=== PATIENT | male | born 1985 | race African-American/Black ===

== ENCOUNTER 2017-08-05 17:07 | Inpatient (IN) | payer OTHER ==
[~2017-08-05] VITALS: Ht 165.1 cm; Wt 99.8 kg
--- NOTE | 2017-08-05 17:47 | NUR ---
CALLED NURSING SUP. FOR MS BED
--- NOTE | 2017-08-05 17:58 | NUR ---
[facility] due [facility] inhalation
[2017-08-05] MEDS ORDERED: MORPHINE SULFATE INJ 4 MG/ML DISP.SYRIN IV STA (18:49)
[2017-08-05] MEDS ORDERED: ONDANSETRON HCL/PF 4 MG/2 ML VIAL IVP ONE (19:00)
[2017-08-05] MEDS ORDERED: IV NS 0.9% 1,000 ML BAG IV ONE (19:00)
[2017-08-05] MEDS ORDERED: HYDROMORPHONE INJ 2 MG/ML DISP.SYRIN IV ONE (19:00)
[2017-08-05] MEDS ORDERED: ONDANSETRON HCL/PF 4 MG/2 ML VIAL ONE (19:05)
[2017-08-05] MEDS ORDERED: MORPHINE SULFATE INJ 4 MG/ML DISP.SYRIN ONE (19:06)
[2017-08-05 19:11] LABS: BASOPHILS # (AUTO) 0.6 /CMM (0.0-0.2); BASOPHILS % (AUTO) 2.9 % (0.0-2.0); EOSINOPHILS % (AUTO) 0.2 % (0.0-6.0); HEMATOCRIT 39 % (39-51); HEMOGLOBIN 16.4 g/dL (13.5-17.5); LYMPHOCYTES # (AUTO) 3.6 /CMM (0.8-4.8); LYMPHOCYTES % (AUTO) 16.7 % (20.0-44.0); MEAN CORPUSCULAR HEMOGLOBIN 44 PG (26.0-33.0); MEAN CORPUSCULAR HGB CONC 43 g/dl (31.0-36.0); MEAN CORPUSCULAR VOLUME 103 fL (80-96); MONOCYTES # (AUTO) 1.5 /CMM (0.1-1.30); MONOCYTES % (AUTO) 6.9 % (2.0-12.0); NEUTROPHILS # (AUTO) 15.6 /CMM (1.8-8.9); NEUTROPHILS % (AUTO) 73.3 % (43.0-81.0); PLATELET COUNT (AUTO) 291 /CMM (150-450); RDW COEFFICIENT OF VARIATION 17.3 (11.5-15.0); RED BLOOD CELL COUNT(AUTO) 3.73 MIL/uL (4.5-6.0); WHITE BLOOD COUNT (AUTO) 21.3 K/uL (4.3-11.0)
[2017-08-05 19:23] LABS: INR 1.91 (0.87-1.13); PROTHROMBIN TIME 19.9 SECS (9.5-12.7)
[2017-08-05 19:39] LABS: ALBUMIN 4.4 g/dL (3.4-5.0); BILIRUBIN,DIRECT 0.2 mg/dL (0.0-0.2); BILIRUBIN,TOTAL 0.7 mg/dL (0.2-1.0); CALCIUM, SERUM 9.7 mg/dL (8.5-10.1); CREATININE 1.1 mg/dL (0.6-1.3); POTASSIUM 3.3 mmol/L (3.5-5.1); TOTAL PROTEIN, SERUM 11.2 g/dL (6.4-8.2)
[2017-08-05 20:08] LABS: APPEARANCE,URINE Turbid (CLEAR); BILIRUBIN,URINE MODERATE (NEGATIVE); BLOOD, URINE Large Ery/uL (NEGATIVE); COLOR,URINE Yellow (YELLOW); KETONES,URINE 15 (NEGATIVE); LEUKOCYTE ESTERASE ,URINE Small (NEGATIVE); NITRITE, URINE Negative (NEGATIVE); PH,URINE 8.5 (5.0-8.0); PROTEIN,URINE >=300 mg/dl (NEGATIVE); UGLUCOSE Negative (NEGATIVE); UROBILINOGEN,URINE 0.2 EU/dL (0.2)
--- NOTE | 2017-08-05 20:23 | NUR ---
report given to Evelio RUFFIN, accepted by Dr. Camargo. Continue plan of care
--- NOTE | 2017-08-05 20:28 | NUR ---
31 Y/ O MALE PLACED IN BED 15. DX - R/O SEPSIS SECONDARY TO UTI. PT TO BE ADMITTED TO M/S. NO BED AVAILABLE YET.
[2017-08-05] MEDS ORDERED: ZOLPIDEM TARTRATE 5 MG TABLET PO PRN (20:30)
[2017-08-05] MEDS ORDERED: ACETAMINOPHEN 325 MG TABLET PO PRN (20:30)
[2017-08-05] MEDS ORDERED: MAGNESIUM HYDROXIDE 30 ML UDC PO PRN (20:30)
[2017-08-05] MEDS ORDERED: Z GUARD REMEDY 2 OZ OINT TP PRN (20:30)
[2017-08-05] MEDS ORDERED: VANCOMYCIN 1 GM in IV D5W 250 ML IV SCH (20:30)
[2017-08-05] MEDS ORDERED: MAG HYDROX/AL HYDROX/SIMETH 30 ML UDC PO PRN (20:30)
[2017-08-05] MEDS ORDERED: ONDANSETRON HCL/PF 4 MG/2 ML VIAL IVP PRN (20:30)
[2017-08-05] MEDS ORDERED: LEVOFLOXACIN 500 MG /D5W 100ML 500 MG in PREMIX 1 EA IV ONE (20:30)
[2017-08-05] MEDS ORDERED: FEE PK DOSING 1 MIN EA MC ONE (20:32)
[2017-08-05] MEDS: ENOXAPARIN SODIUM 40 MG/0.4 ML DISP.SYRIN SQ SCH (21:00)
[2017-08-05] MEDS ORDERED: PIPERACILLIN /TAZOBACTAM 4.5 G in IV D5W 50 ML IV SCH (21:00)
[2017-08-05 21:01] LABS: BACTERIA,URINE Few /HPF (None Seen); SQUAMOUS EPITHELIAL CELL,UR Rare /HPF (None Seen); TRIPLE PHOSPHATE CRYSTAL,UR Few /HPF (None Seen); URINE AMORPHOUS PHOSPHATES Many /HPF (None Seen)
[2017-08-05 21:41] VITALS: BP 164/89
[2017-08-05] MEDS ORDERED: PIPERACILLIN /TAZOBACTAM 3.375 G VIAL IV ONE (21:51)
[2017-08-05] MEDS: IV NS 0.9% 1,000 ML IV PRN (21:53)
[2017-08-05] MEDS ORDERED: VANCOMYCIN 1 GM VIAL ONE (22:00)
[2017-08-05] MEDS: VANCOMYCIN 1 GM in IV D5W 250 ML IV SCH (22:00)
--- NOTE | 2017-08-05 22:00 | NUR ---
IV ANTIBIOTICS STARTED.
[2017-08-05] MEDS ORDERED: ENOXAPARIN SODIUM 40 MG/0.4 ML DISP.SYRIN SQ ONE (22:33)
[2017-08-05] MEDS ORDERED: METRONIDAZOLE 500 MG TABLET ONE (22:34)
[2017-08-05] MEDS: METRONIDAZOLE 500 MG TABLET PO SCH (22:36)
--- NOTE | 2017-08-06 00:14 | NUR ---
IV ANTIBIOTICS CONTINUE TO RUN. EXAMINED CLOSER BILATERAL ULCERATIONS ON LOWER EXTREMITIES. IT APPEARS THAT THEY ARE IN THE PROCESS OF HEALING BUT THERE IS SOME DRAINAGE FROM BOTH WOUNDS. AREA IS REDDEND AND WARM TO THE TOUCH.
[2017-08-06] MEDS: PIPERACILLIN /TAZOBACTAM 3.375 G in IV D5W 50 ML IV SCH ×4 (00:18→17:39)
[2017-08-06] MEDS ORDERED: HYDROCODONE/APAP 5/325MG 1 EACH TABLET ONE ×2 (00:58→11:55)
[2017-08-06] MEDS: HYDROCODONE/APAP 5/325MG 1 EACH TABLET PO PRN ×2 (01:00→11:58)
--- NOTE | 2017-08-06 01:05 | NUR ---
PT C/O ABDOMINAL PAIN. MEDICATED WITH NORCO. CONTINUE TO MONITOR. PT UPSET THAT HE WAS NOT RECEIVING MORPHINE.
[2017-08-06 01:58] VITALS: BP 121/79
--- NOTE | 2017-08-06 02:00 | NUR ---
PAIN LEVEL HAS GONE DOWN FOLLOWING THE ADMINISTRATION OF NORCO.
--- NOTE | 2017-08-06 02:00 | NUR ---
EMPTIED COLOSTOMY BAG. APPROX. 200CC OF FECAL MATTER.
--- NOTE | 2017-08-06 03:30 | NUR ---
PT APPEARS COMFORTABLE. CONTINUE TO MONITOR
[2017-08-06] MEDS ORDERED: VANCOMYCIN 1 GM VIAL ONE (04:22)
[2017-08-06] MEDS ORDERED: PIPERACILLIN /TAZOBACTAM 3.375 G VIAL IV ONE (04:31)
[2017-08-06] MEDS ORDERED: METRONIDAZOLE 500 MG TABLET ONE (04:31)
[2017-08-06] MEDS: VANCOMYCIN 1 GM in IV D5W 250 ML IV SCH ×3 (05:18→20:43)
[2017-08-06] MEDS: METRONIDAZOLE 500 MG TABLET PO SCH ×3 (05:18→20:43)
[2017-08-06 05:28] VITALS: BP 105/71
--- NOTE | 2017-08-06 05:29 | NUR ---
BLOOD DRAWN AND SENT. ANTIBIOTICS STARTED AGAIN
[2017-08-06 05:50] LABS: BASOPHILS # (AUTO) 0.1 /CMM (0.0-0.2); BASOPHILS % (AUTO) 0.4 % (0.0-2.0); EOSINOPHILS # (AUTO) 0.2 /CMM (0.0-0.7); EOSINOPHILS % (AUTO) 1.4 % (0.0-6.0); HEMATOCRIT 43 % (39-51); HEMOGLOBIN 14.2 g/dL (13.5-17.5); LYMPHOCYTES # (AUTO) 2.9 /CMM (0.8-4.8); LYMPHOCYTES % (AUTO) 19.9 % (20.0-44.0); MEAN CORPUSCULAR HEMOGLOBIN 28 PG (26.0-33.0); MEAN CORPUSCULAR HGB CONC 33 g/dl (31.0-36.0); MEAN CORPUSCULAR VOLUME 84 fL (80-96); MONOCYTES # (AUTO) 0.9 /CMM (0.1-1.30); MONOCYTES % (AUTO) 6.3 % (2.0-12.0); NEUTROPHILS # (AUTO) 10.4 /CMM (1.8-8.9); PLATELET COUNT (AUTO) 366 /CMM (150-450); RDW COEFFICIENT OF VARIATION 15.4 (11.5-15.0); RED BLOOD CELL COUNT(AUTO) 5.08 MIL/uL (4.5-6.0); WHITE BLOOD COUNT (AUTO) 14.4 K/uL (4.3-11.0)
--- NOTE | 2017-08-06 06:05 | NUR ---
500 CC URINE OUTPUT FROM NÚÑEZ.
[2017-08-06 06:20] LABS: CALCIUM, SERUM 8.7 mg/dL (8.5-10.1); CREATININE 0.7 mg/dL (0.6-1.3); PHOSPHORUS 3.3 mg/dL (2.5-4.9)
[2017-08-06 06:26] LABS: THYROID STIMULATING HORMONE 3.248 uIU/mL (0.358-3.74)
[2017-08-06 06:30] LABS: POTASSIUM 2.4 mmol/L (3.5-5.1)
--- NOTE | 2017-08-06 06:54 | NUR ---
CRITICAL VALUE FOR THE PT - POTASSIUM 2.4. CALLED DR. OWENS EXCHANGE. DOCTOR DOCUMENTATION ENGINEER IS DR. BALDERAS. LEFT VALUE WITH PUMP HOUSE ENGINEER AND PHONE NUMBER FOR HIM TO CALL US BACK.
[2017-08-06] MEDS ORDERED: ACET-868 PO (07:52)
[2017-08-06] MEDS ORDERED: CYCL5TAB PO (07:52)
[2017-08-06] MEDS ORDERED: MULT1TAB11 PO (07:52)
[2017-08-06] MEDS ORDERED: ASCO500T9 PO (07:52)
[2017-08-06] MEDS ORDERED: CHOL100044 PO (07:52)
[2017-08-06] MEDS ORDERED: FAMO20TA8 PO (07:52)
[2017-08-06] MEDS ORDERED: MAGN400O6 PO (07:52)
[2017-08-06] MEDS ORDERED: AMIN30LI4 PO (07:52)
[2017-08-06] MEDS ORDERED: ZINC220C8 PO (07:52)
[2017-08-06] MEDS ORDERED: LACT10SO PO (07:52)
[2017-08-06] MEDS ORDERED: MIRT30TA7 PO (07:52)
[2017-08-06] MEDS ORDERED: WARF4TAB6 PO (07:52)
[2017-08-06] MEDS ORDERED: NA P133E RC (07:52)
[2017-08-06] MEDS ORDERED: MELA5TAB PO (07:52)
[2017-08-06] MEDS ORDERED: ACET-2605 PO (07:52)
[2017-08-06] MEDS ORDERED: OMEG500C PO (07:52)
[2017-08-06] MEDS ORDERED: MORP15TA PO ×3 (07:52)
[2017-08-06] MEDS ORDERED: BISA10SU8 RC (07:52)
[2017-08-06 08:00] VITALS: BP 112/71
--- NOTE | 2017-08-06 10:07 | NUR ---
PATIENT ON BED. VSS. WILL CONT TO MONITOR
[2017-08-06] MEDS ORDERED: POTASSIUM CHLORIDE 20 MEQ TAB.PRT.SR PO ONE ×2 (10:30→11:04)
[2017-08-06] MEDS: POTASSIUM CL. PREMIX PERIPHER. 50 ML IV SCH ×9 (11:22→22:33)
--- NOTE | 2017-08-06 12:38 | NUR ---
CARE TRANSFFERED TO LALY HALL
--- NOTE | 2017-08-06 13:00 | NUR ---
SEO COORDINATOR OPENING NOTES. PT RECEIVED A&0X3 FROM ER VIA GURNEY. PT TOLERATING ROOM AIR WITH NO SOB. PT REPORTING MODERATE STOMACH PAIN, PT WITH WITH R SIDE COLOSTOMY BAG, DRAINING APPROPRIATELY WITH SOME LEAKAGE, PLAN TO REPLACE. PT WITH NÚÑEZ INTACT AND OPERATIONAL DRAINING CLEAR VENITA YELLOW URINE. PT WITH IVC AT R AC INTACT AND OPERATIONAL. PT VITALS WNL. PT BRIEFED ON TODAY'S POC, PT WITHOUT CONCERN OR COMPLAINT AT THIS TIME.
[2017-08-06] MEDS: IV NS 0.9% 1,000 ML IV PRN (14:01)
[2017-08-06 16:00] VITALS: BP 115/78
--- NOTE | 2017-08-06 17:36 | NUR ---
LALY NOTES. K REPLACEMENT SLOWED TO 30ML/PH DUE TO PAIN AT SITE. WILL TEST TOLERANCE AGAIN IN 60 MIN. Addendum: 08/06/17 at 1738 by RAFAEL FANG RN TIME 1600
--- NOTE | 2017-08-06 17:38 | NUR ---
RN NOTES. KL REPLACEMENT INCREASED TO 40ML/HR. WELL TOLERATED.
--- NOTE | 2017-08-06 19:30 | NUR ---
BAGGING SALVAGER - INITIAL N OTES PATIENT IN BED. CURRENTLY ASLEEP. TELE READING OF SINUS TACH 102. NO S/S OF SOB OR ANY DISCOMFORT NOTED. BED IN LOW POSITION AND LOCKED. SIDERAILS X2 UP. NO SIGNIFICANT CHANGES NOTED AT THIS TIME. WILL CONTINUE TO MONITOR PATIENT.
--- NOTE | 2017-08-06 19:30 | NUR ---
RN CLOSING NOTES. PT A&0X3 RESTING IN BED. PT TOLERATING ROOM AIR WITH NO SOB. PT REPORTING MINOR PAIN, REFUSING PAIN MED REPORTS NORCO IS INEFFECTIVE- NIGHT NURSE TO FOLLOW UP. PT WITH COLOSTOMY BAG INTACT AND OPERATIONAL, NÚÑEZ INTACT AND DRAINING APPROPRIATELY. PT WITH IVC AT R AC G#20 INTACT AND OPERATIONAL. ALL DAY NURSE DUTIES ATTENDED TO, PT WITHOUT CONCERN OR COMPLAINT AT THIS TIME. WILL ENDORSE TO NIGHT NURSE.
[2017-08-06 20:00] VITALS: BP 124/86
[2017-08-06] MEDS: ENOXAPARIN SODIUM 40 MG/0.4 ML DISP.SYRIN SQ SCH (20:44)
[2017-08-07] VITALS: BP 127/83
[2017-08-07] MEDS ORDERED: VANCOMYCIN HCL 125 MG/2.5 ML ORAL.SUSP ONE (00:11)
[2017-08-07] MEDS: VANCOMYCIN HCL 125 MG CAPSULE PO SCH ×2 (00:24→05:18)
[2017-08-07] MEDS: PIPERACILLIN /TAZOBACTAM 3.375 G in IV D5W 50 ML IV SCH ×4 (00:25→17:44)
[2017-08-07 04:00] VITALS: BP 135/78
[2017-08-07] MEDS: IV NS 0.9% 1,000 ML IV PRN ×2 (05:17→20:47)
--- NOTE | 2017-08-07 05:48 | NUR ---
Patient is verbalizing that [place] pain medication is not helping him with pain. Patient is complaining of abdominal pain 05/10. Paged MD for further pain medication order. Awaiting call back.
--- NOTE | 2017-08-07 07:30 | NUR ---
RN NOTES RECEIVED PATIENT IN BED ASLEEP WITH BREATHING NORMAL, EVEN AND UNLABORED. NO SOB NOTED. NO ACUTE DISTRESS NOTED. ON ROOM AIR, SATURATING WELL. TELE MONITOR REVEALS SR, HR=97. IV IS PATENT AND INTACT, NO INFILTRATION NOTED BOWEL SOUND PRESENT. PULSES PRESENT. SAFETY MEASURE OBSERVED. ALL NEEDS ATTENDED. CALL LIGHT WITH IN REACH. WILL CONT TO MONITOR.
[2017-08-07 07:42] LABS: BASOPHILS % (AUTO) 0.3 % (0.0-2.0); EOSINOPHILS # (AUTO) 0.1 /CMM (0.0-0.7); EOSINOPHILS % (AUTO) 0.8 % (0.0-6.0); HEMATOCRIT 43 % (39-51); HEMOGLOBIN 14.3 g/dL (13.5-17.5); LYMPHOCYTES # (AUTO) 1.8 /CMM (0.8-4.8); LYMPHOCYTES % (AUTO) 17.7 % (20.0-44.0); MEAN CORPUSCULAR HEMOGLOBIN 28 PG (26.0-33.0); MEAN CORPUSCULAR HGB CONC 33 g/dl (31.0-36.0); MEAN CORPUSCULAR VOLUME 85 fL (80-96); MONOCYTES # (AUTO) 0.9 /CMM (0.1-1.30); MONOCYTES % (AUTO) 8.9 % (2.0-12.0); NEUTROPHILS # (AUTO) 7.5 /CMM (1.8-8.9); NEUTROPHILS % (AUTO) 72.3 % (43.0-81.0); PLATELET COUNT (AUTO) 365 /CMM (150-450); RDW COEFFICIENT OF VARIATION 15.1 (11.5-15.0); RED BLOOD CELL COUNT(AUTO) 5.07 MIL/uL (4.5-6.0); WHITE BLOOD COUNT (AUTO) 10.4 K/uL (4.3-11.0)
[2017-08-07 07:49] LABS: CALCIUM, SERUM 9.2 mg/dL (8.5-10.1); CREATININE 0.8 mg/dL (0.6-1.3); MAGNESIUM 2.2 mg/dL (1.8-2.4); POTASSIUM 3.2 mmol/L (3.5-5.1)
[2017-08-07 08:00] VITALS: BP 116/83
[2017-08-07] MEDS ORDERED: VANCOMYCIN 1 GM in IV D5W 250 ML IV SCH (09:00)
[2017-08-07] MEDS: VANCOMYCIN HCL 125 MG/2.5 ML ORAL.SUSP PO SCH ×4 (10:01→20:47)
--- NOTE | 2017-08-07 11:35 | NUR ---
WOUND CARE CONSULT: PT PRESENTS WITH MULTIPLE SCARS AND STAGE 4 ULCER TO RT HIP, STAGE 3 ULCER TO RT BUTTOCK, COLOSTOMY WITH LIQUID STOOL AND HEALED/HEALING AREAS TO LOWER LEGS, PRESENT ON ADMISSION. RECOMMENDATIONS MADE FOR WOUND AND SKIN PROTECTION. DISCUSSED WITH NURSING STAFF. DR NELSON IN WITH PT FOR LOWER EXTREMITIES. SURGICAL CONSULT WAS CALLED BY . FIRST STEP MATRENAN ORDERED. WILL SEE PRN. LR IN AGREEMENT WITH PLAN OF CARE. Addendum: 08/07/17 at 1137 by JOE STOKES WNDNU Amended: Links added.
[2017-08-07] MEDS: HYDROCODONE/APAP 10/325MG 1 EA TABLET PO PRN ×2 (11:53→18:02)
[2017-08-07] MEDS: POTASSIUM CHLORIDE 20 MEQ TAB.PRT.SR PO SCH ×2 (11:54→12:55)
[2017-08-07] MEDS ORDERED: HYDROGEL DRESSING 90 GM TUBE TP PRN (12:00)
[2017-08-07] MEDS: HYDROGEL DRESSING 90 GM TUBE TP SCH (12:49)
[2017-08-07 16:00] VITALS: BP 132/69
--- NOTE | 2017-08-07 18:46 | NUR ---
RN NOTES PATIENT ENDORSED TO NEXT SHIFT IN STABLE CONDITION WITH BREATHING NORMAL, EVEN AND UNLABORED. NO SOB NOTED. NO ACUTE DISTRESS NOTED. KEPT CLEAN, DRY AND COMFORTABLE. ALL NEEDS ATTENDED. CALL LIGHT WITH IN REACH. SAFETY MEASURE OBSERVED. WILL CONT TO MONITOR.
--- NOTE | 2017-08-07 19:15 | NUR ---
MS/RN NOTES RECEIVED PT. LYING IN BED RESTING. PT. IS EASILY AROUSABLE TO NAME. PT. IS AWAKE, ALERT AND ORIENTED X3. BREATHING EVEN AND UNLABORED ON ROOM AIR. NO SOB, RESPIRATORY DISTRESS OR COMPLAINTS OF PAIN NOTED AT THIS TIME. PT. IV SITE PATENT, CLEAN, DRY AND INTACT, ADMINISTERING TO PT. NS @ 75 ML/HR. BED LOCKED AND IN LOWEST POSITION, SIDE RAILS UP X2, CALL LIGHT WITHIN REACH, WILL CONTINUE TO MONITOR.
[2017-08-07 20:00] VITALS: BP 135/85
[2017-08-07] MEDS: ENOXAPARIN SODIUM 40 MG/0.4 ML DISP.SYRIN SQ SCH (20:47)
[2017-08-08] MEDS: PIPERACILLIN /TAZOBACTAM 3.375 G in IV D5W 50 ML IV SCH ×3 (00:23→12:12)
[2017-08-08] MEDS: HYDROCODONE/APAP 10/325MG 1 EA TABLET PO PRN (00:29)
--- NOTE | 2017-08-08 06:50 | NUR ---
MS/RN NOTES PT. IS LYING IN BED RESTING. BREATHING EVEN AND UNLABORED ON ROOM AIR. NO SOB, RESPIRATORY DISTRESS OR COMPLAINTS OF PAIN NOTED AT THIS TIME. PT. LEFT HAND 22 GAUGE PERIPHERAL IV PATENT, CLEAN, DRY AND INTACT, ADMINISTERING TO PT. NS @ 75 ML/HR. PT. WITH COLOSTOMY BAG PRESENT AND INTACT DRAINING BROWN LIQUID FECES. PT. WITH SUPRAPUBIC CATHETER PRESENT, PATENT AND INTACT DRAINING YELLOW URINE WITH SEDIMENT. ALL PT. NEEDS MET. ALL DUE MEDICATIONS GIVEN. BED LOCKED AND IN LOWEST POSITION, SIDE RAILS UP X2, CALL LIGHT WITHIN REACH, WILL ENDORSE TO DAYSHIFT NURSE FOR CONTINUITY OF CARE.
[2017-08-08 07:10] LABS: CALCIUM, SERUM 8.2 mg/dL (8.5-10.1); POTASSIUM 3.2 mmol/L (3.5-5.1)
--- NOTE | 2017-08-08 07:35 | NUR ---
RN OPENING NOTES PT. IS SLEEPING IN BED. BREATHING UNLABORED, AND EVENLY ON ROOM AIR. NO S/S OF ACUTE DISTRESS. IV FLUIDS RUNNING AT 75 ML/HR. BED IS IN LOWEST, AND LOCKED POSITION. 2 SIDE RAILS UP, AND CALL LIGHT IS WITHIN REACH. ALL NEEDS MET. WILL CONTINUE TO ASSESS AND MONITOR.
[2017-08-08 08:00] VITALS: BP 120/79
[2017-08-08] MEDS: HYDROGEL DRESSING 90 GM TUBE TP SCH (10:23)
[2017-08-08] MEDS: VANCOMYCIN HCL 125 MG/2.5 ML ORAL.SUSP PO SCH ×2 (10:24→12:57)
--- NOTE | 2017-08-08 10:30 | NUR ---
RN NOTES WOUND CARE WAS PERFORMED AND CLEAN DRESSING APPLIED PER MD ORDERS.
[2017-08-08] MEDS ORDERED: ONDA4TAB5 PO (10:49)
[2017-08-08] MEDS ORDERED: POTASSIUM CHLORIDE 20 MEQ TAB.PRT.SR PO SCH (11:00)
--- NOTE | 2017-08-08 11:30 | NUR ---
RN NOTES PT. REFUSES TO TAKE POTASSIUM ORDERED. PT. WAS EXPLAINED THE REASON FOR TAKING POTASSIUM AND IT'S BENEFITS. PT. REFUSED TO TAKE MEDICATION, MD WAS NOTIFIED, AND WAS GIVEN AN OKAY TO PROCEED WITH DISCHARGE.
--- NOTE | 2017-08-08 13:15 | NUR ---
GLOBAL PRESIDENT NOTES PT. IS IN MEDICALLY STABLE CONDITION. EDUCATION, AND DISCHARGE INSTRUCTIONS PROVIDED TO PT., PT. VERBALIZED UNDERSTANDING AND SIGNED DISCHARGE PAPERS. BELONGINGS LIST WAS CHECKED, AND SIGNED. PICTURES TAKEN AND PLACED IN CHART. IV AND ID BAND REMOVED WITHOUT COMPLICATIONS. PT. LEFT WITH SUPRAPUBIC INDWELLING CATHETER, AND COLOSTOMY BAG CLEAN AND INTACT. PT. WAS OFFERED TO CALL HIS BROTHER TO INFORM HIM PT. WAS BEING TAKEN BACK TO [facility], PT. REFUSED TO CALL HIS BROTHER.
--- NOTE | 2017-08-08 13:20 | NUR ---
MARINE ELECTRONICS REPAIRER NOTES PT. IS BEING TAKEN TO [facility] BY AMBULANCE. PT. LEFT IN MEDICALLY STABLE CONDITION. REPORT WAS GIVEN TO LALY RAMIREZ FROM [facility] [[email or web address]
== END 2017-08-08 13:23 | DRG 871 ==
LOC: ER 17:08 → TRANSITION 18:42 → TELE 08-06 12:43 → MED 08-07 08:32
DX: A41.9 Sepsis, unspecified organism (principal); L89.214 Pressure ulcer of right hip, stage 4; D68.9 Coagulation defect, unspecified; L89.304 Pressure ulcer of unspecified buttock, stage 4; G82.20 Paraplegia, unspecified; I48.0 Paroxysmal atrial fibrillation; N31.9 Neuromuscular dysfunction of bladder, unspecified; L89.894 Pressure ulcer of other site, stage 4; M86.9 Osteomyelitis, unspecified; J70.5 Respiratory conditions due to smoke inhalation; X08.8XXA Exposure to other specified smoke, fire and flames, initial encounter; T59.811A Toxic effect of smoke, accidental (unintentional), initial encounter; Y92.129 Unspecified place in nursing home as the place of occurrence of the external cause; I10 Essential (primary) hypertension; W34.00XS Accidental discharge from unspecified firearms or gun, sequela; Z93.3 Colostomy status; Z86.718 Personal history of other venous thrombosis and embolism; E87.6 Hypokalemia; T45.515A Adverse effect of anticoagulants, initial encounter; F32.9 Major depressive disorder, single episode, unspecified; L85.3 Xerosis cutis; K76.0 Fatty (change of) liver, not elsewhere classified; A08.4 Viral intestinal infection, unspecified
CPT/HCPCS: 36415; 71010-TC; 80048-TC; 80061-TC; 80076-TC; 80202-TC; 81000-TC; 83690-TC; 83735-TC; 84100-TC; 84443-TC; 85025-TC; 85730-TC; 87040-TC; 87081-TC; 87086-TC; A4216; A4606; A6248; A6402; A6403; A6407; J1170; J1650; J1956; J2270; J2405; J2543; J3370; J3480; J7030; J7060; Z7610

== ENCOUNTER 2018-06-03 00:23 | Inpatient (IN) | payer OTHER ==
[~2018-06-03] VITALS: Ht 165.1 cm; Wt 95.7 kg
[~2018-06-03 00:23] MED LIST: ACET-2605 PO; ACET-868 PO; AMIN30LI4 PO; ASCO500T9 PO; BISA10SU8 RC; CHOL100044 PO; CYCL5TAB PO; FAMO20TA8 PO; LACT10SO PO; MAGN400O6 PO; MELA5TAB PO; MIRT30TA7 PO; MORP15TA PO; MULT1TAB11 PO; NA P133E RC; OMEG500C PO; ONDA4TAB5 PO; WARF4TAB72 PO; ZINC220C8 PO
--- NOTE | 2018-06-03 00:23 | NUR ---
CARLEY FROM [facility] C/C SENT BY PMD FOR L FEMUR FRACTURE. PER EMS,PT WAS STRETCHING AND HEARD A "POP". PT IS TACHYCARDIC BUT OTHERWISE VSS NO ACUTE DISTRESS NOTED AT THIS TIME. SKIN WARM AND INTACT. PATIENT IS ALERT AND ORIENTED X4 ABLE TO MAKE NEEDS KNOWN. WILL CONTINUE TO MONITOR FOR ANY CHANGES DURING THE SHIFT.
--- NOTE | 2018-06-03 00:24 | NUR ---
ER MD CORTEZ AT BEDSIDE FOR EVAL
[2018-06-03 02:41] LABS: BASOPHILS % (AUTO) 0.2 % (0.0-2.0); EOSINOPHILS % (AUTO) 0.9 % (0.0-6.0); HEMATOCRIT 39 % (39-51); HEMOGLOBIN 12.5 g/dL (13.5-17.5); LYMPHOCYTES # (AUTO) 3.6 /CMM (0.8-4.8); LYMPHOCYTES % (AUTO) 22.4 % (20.0-44.0); MEAN CORPUSCULAR HGB CONC 33 g/dl (31.0-36.0); MEAN CORPUSCULAR VOLUME 85 fL (80-96); MONOCYTES # (AUTO) 1.7 /CMM (0.1-1.30); MONOCYTES % (AUTO) 10.6 % (2.0-12.0); NEUTROPHILS # (AUTO) 10.6 /CMM (1.8-8.9); NEUTROPHILS % (AUTO) 65.9 % (43.0-81.0); PLATELET COUNT (AUTO) 456 /CMM (150-450); RDW COEFFICIENT OF VARIATION 16.4 (11.5-15.0); RED BLOOD CELL COUNT(AUTO) 4.53 MIL/uL (4.5-6.0)
[2018-06-03 02:56] LABS: CALCIUM, SERUM 8.3 mg/dL (8.5-10.1); CREATININE 0.5 mg/dL (0.6-1.3)
[2018-06-03 03:06] LABS: INR 3.05 (0.87-1.13)
[2018-06-03 03:15] LABS: LYMPHOCYTES % (MANUAL) 25 % (16-48); MONOCYTES % (MANUAL) 8 % (0-11.0); NEUTROPHILS % (MANUAL) 67 (42-76)
[2018-06-03] MEDS ORDERED: POTASSIUM CL. PREMIX PERIPHER. 50 ML ONE (03:35)
[2018-06-03] MEDS: POTASSIUM CL. PREMIX PERIPHER. 50 ML IV SCH ×6 (03:41→09:49)
--- NOTE | 2018-06-03 03:53 | NUR ---
REPORT GIVEN TO ANAYA
[2018-06-03] MEDS ORDERED: ACETAMINOPHEN 325 MG TABLET PO PRN (04:00)
[2018-06-03] MEDS ORDERED: HYDROCODONE/APAP 5/325MG 1 EACH TABLET PO PRN (04:00)
[2018-06-03] MEDS ORDERED: ZOLPIDEM TARTRATE 5 MG TABLET PO PRN (04:00)
[2018-06-03] MEDS ORDERED: MORPHINE SULFATE INJ 4 MG/ML DISP.SYRIN IV PRN (04:00)
[2018-06-03] MEDS ORDERED: Z GUARD REMEDY 2 OZ OINT TP PRN (04:00)
[2018-06-03] MEDS ORDERED: ONDANSETRON HCL/PF 4 MG/2 ML VIAL IVP PRN (04:00)
[2018-06-03] MEDS ORDERED: MAGNESIUM HYDROXIDE 30 ML UDC PO PRN (04:00)
[2018-06-03] MEDS ORDERED: NA PHOS,M-B/NA PHOS,DI-BA 1 EA ENEMA RC PRN (04:00)
[2018-06-03] MEDS ORDERED: BISACODYL SUPP (10 MG) 10 MG/SUPP.RECT SUPP.RECT RC PRN (04:00)
[2018-06-03] MEDS ORDERED: MAG HYDROX/AL HYDROX/SIMETH 30 ML UDC PO PRN (04:00)
[2018-06-03 04:15] VITALS: BP 129/80
[2018-06-03] MEDS: IV NS 0.9% 1,000 ML IV PRN ×2 (04:17→21:10)
--- NOTE | 2018-06-03 06:40 | NUR ---
VALVE MAKER CLOSING NOTES RECEIVE PT AT 0404 FROM [facility] [place] PT A/OX 3. NOT IN DISTRESS. TOLERATING ROOM AIR 99%, ADMIT TO TELE ST 100 RESPIRATION EVEN AND UNLABORED. KEPT CLEAN AND DRY AND COMFORTABLE, ALL NURSING CARE RENDERED. NEEDS ATTENDED AND ANTICIPATED. GOOD SKIN CARE PROVIDED. HEAD TO TOE ASSESSMENT IS DONE, REPOSITION Q2H. NO COMPLAIN OF PAIN AT THIS TIME. ON LOW BED AT ALL TIMES TO ENSURE SAFETY. SAFE HAZARD FREE ENVIRONMENT PROVIDED. CALL LIGHT WITHIN EASY TO REACH. WILL ENDORSE NEXT SHIFT CONTINUITY OF CARE.
--- NOTE | 2018-06-03 08:10 | NUR ---
MS RN RECEIVED ON BED, AWAKE,ALERT,ORIENTED X4,NOT IN ANY FORM OF DISTRESS, RESPIRATIONS EVEN AND UNLABORED,NO SOB NOTED. LUNGS ARE CLEAR, ABDOMEN SOFT, POSITIVE BOWEL SOUNDS, DENIES PAIN AT THIS TIME, WILL MONITOR PATIENT.
[2018-06-03 08:24] VITALS: BP 116/70
--- NOTE | 2018-06-03 08:30 | NUR ---
MS RN PATIENT REFUSED TO EAT BREAKFAST AND TAKE MEDS DUE TO HE IS WAITING FOR ORTHO DOCTOR TO COME. MEDS ARE HELD AT THIS TIME.
[2018-06-03 09:33] LABS: MAGNESIUM 2.1 mg/dL (1.8-2.4)
[2018-06-03 09:51] LABS: THYROID STIMULATING HORMONE 1.669 uIU/mL (0.358-3.74)
--- NOTE | 2018-06-03 16:00 | NUR ---
MS RN WAS SEEN BY ORTHO, NO ORDER FOR SX TO BE DONE, PATIENT CAN EAT NOW.
[2018-06-03 16:25] VITALS: BP 115/68
--- NOTE | 2018-06-03 17:04 | NUR ---
MS RN ON BED, NO DISTRESS NOTED.
[2018-06-03] MEDS: ASCORBIC ACID 500 MG TABLET PO SCH (17:55)
[2018-06-03] MEDS: MORPHINE SULFATE IR 15 MG TABLET PO SCH ×2 (17:55→21:00)
[2018-06-03] MEDS: ZINC SULFATE 220 MG CAPSULE PO SCH (17:55)
[2018-06-03] MEDS: WARFARIN SODIUM 2 MG TABLET PO SCH (17:59)
--- NOTE | 2018-06-03 18:55 | NUR ---
ms rn on bed, no distress noted.
--- NOTE | 2018-06-03 19:32 | NUR ---
RN OPENING NOTES PT ASLEEP IN BED COMFORTABLY, EASILY AROUSED. PT IN ROOM AIR, TOLERATING WELL, NO SIGNS OF DISTRESS, NO LABORED BREATHING. PT HAS NÚÑEZ CATHETER, PATENT AND INTACT. COLOSTOMY BAG IS INTACT AND PATENT. RIGHT HIP AND RIGHT BUTTOCK DRESSING IS INTACT AND DRY, WILL CHANGE NECESSARY. IV ACCESS ON THE RIGHT AC 18G PATENT AND INTACT. PT DENIES ANY PAIN AT THIS MOMENT. SAFETY MEASURES IN PLACED, CALL LIGHT WITHIN REACH. WILL CONTINUE TO MONITOR AND ASSESS PATIENT.
[2018-06-03 20:00] VITALS: BP_SYST 128; BP_SYST 28; BP_DIAS 69
--- NOTE | 2018-06-03 20:40 | NUR ---
RN NOTES/ HR PT HR IS 130s-140s IS ASYMPTOMATIC, NO N/V, NO CHEST PAIN, OR ANY PAIN. HEART RATE WAS CHECKED TWICE ON THE BP MACHINE AND ONCE ON PALPATION, READINGS ARE THE SAME. CALLED DR. VALLADARES BECAUSE PT HR IS RANGING FROM 130-140s. Dr. Valladares ordered to put patient back on telemetry, stat EKG, and lopressor for HR >120 PRN.
[2018-06-03] MEDS ORDERED: METOPROLOL TARTRATE 25 MG TABLET PO PRN (21:00)
--- NOTE | 2018-06-03 21:21 | NUR ---
RN NOTES/ NON-ADMIN MS IR MED MS IR TAB MED Q12H NON-ADMIN BECAUSE AM NURSE ADMIN THE MEDICATION AT 1755 ON 06/03/18. PT CURRENTLY DENIES ANY PAIN, LAYING IN BED COMFORTABLY
[2018-06-03] MEDS ORDERED: MIRTAZAPINE 15 MG TABLET PO SCH (22:00)
[2018-06-04] VITALS: BP 115/72
--- NOTE | 2018-06-04 00:31 | NUR ---
RN NOTES PT GIVEN TYLENOL DUE TO ELEVATED TEMPERATURE OF 100 DEGREES FARENHEIT
--- NOTE | 2018-06-04 02:09 | NUR ---
RN NOTES/ HR PT HR DECREASED TO 112, SINUS TACHYCARDIA. ASYMPTOMATIC, NO SIGNS OF DISTRESS, SLEEPING IN BED, EASILY AROUSED
--- NOTE | 2018-06-04 02:14 | NUR ---
RN NOTES/ TEMP PT TEMPERATURE HAS GONE DOWN TO 98.1, TYLENOL WAS EFFECTIVE
[2018-06-04 04:00] VITALS: BP 105/65
[2018-06-04 06:36] LABS: BASOPHILS # (AUTO) 0.1 /CMM (0.0-0.2); BASOPHILS % (AUTO) 0.3 % (0.0-2.0); EOSINOPHILS % (AUTO) 1.2 % (0.0-6.0); HEMATOCRIT 33 % (39-51); HEMOGLOBIN 10.6 g/dL (13.5-17.5); LYMPHOCYTES # (AUTO) 2.9 /CMM (0.8-4.8); LYMPHOCYTES % (AUTO) 18.4 % (20.0-44.0); MEAN CORPUSCULAR HGB CONC 33 g/dl (31.0-36.0); MEAN CORPUSCULAR VOLUME 85 fL (80-96); MONOCYTES # (AUTO) 1.5 /CMM (0.1-1.30); MONOCYTES % (AUTO) 9.4 % (2.0-12.0); NEUTROPHILS # (AUTO) 11.3 /CMM (1.8-8.9); NEUTROPHILS % (AUTO) 70.7 % (43.0-81.0); PLATELET COUNT (AUTO) 413 /CMM (150-450); RDW COEFFICIENT OF VARIATION 16.8 (11.5-15.0); RED BLOOD CELL COUNT(AUTO) 3.83 MIL/uL (4.5-6.0)
--- NOTE | 2018-06-04 06:47 | NUR ---
RN CLOSING NOTES PT ASLEEP IN BED COMFORTABLY, EASILY AROUSED. PT IN ROOM AIR, TOLERATING WELL, NO SIGNS OF DISTRESS, NO LABORED BREATHING. PT IN CARDIAC MONITORING SHOWING SINUS RHYTHM AT 88BPM. COLOSTOMY BAG IS INTACT AND PATENT, CHANGED DURING THE SHIFT. IV ACCESS ON THE RIGHT AC 18G PATENT AND INTACT. PT DENIES ANY PAIN AT THIS MOMENT. SAFETY MEASURES IN PLACED, CALL LIGHT WITHIN REACH. WILL ENDORSE CONTINUITY OF CARE TO THE ONCOMING RN
[2018-06-04 06:51] LABS: ALBUMIN 2.5 g/dL (3.4-5.0); BILIRUBIN,TOTAL 0.8 mg/dL (0.2-1.0); CALCIUM, SERUM 8.1 mg/dL (8.5-10.1); CREATININE 0.7 mg/dL (0.6-1.3); MAGNESIUM 2.1 mg/dL (1.8-2.4); PHOSPHORUS 3.5 mg/dL (2.5-4.9); POTASSIUM 3.7 mmol/L (3.5-5.1); TOTAL PROTEIN, SERUM 7.3 g/dL (6.4-8.2)
[2018-06-04 08:00] VITALS: BP 100/70
[2018-06-04] MEDS: LACTULOSE 10 G/15 ML UDC (PYXIS) PO SCH ×2 (09:00→09:34)
[2018-06-04] MEDS: ASCORBIC ACID 500 MG TABLET PO SCH (09:34)
[2018-06-04] MEDS: ZINC SULFATE 220 MG CAPSULE PO SCH (09:34)
[2018-06-04] MEDS: MORPHINE SULFATE IR 15 MG TABLET PO SCH (09:35)
[2018-06-04] MEDS ORDERED: SULF1TAB48 PO (12:55)
[2018-06-04 16:00] VITALS: BP 125/65
[2018-06-04] MEDS: WARFARIN SODIUM 2 MG TABLET PO SCH (17:00)
--- NOTE | 2018-06-04 17:51 | NUR ---
PROTECTION MGR NOTE PATIENT A/OX4, RECEIVED DISCHARGED INSTRUCTIONS AND VERBALIZED UNDERSTANDING. PAPERWORKS SIGNED, SKIN ASSESSMENT COMPLETED, PHOTOS TAKEN AND PLACED IN CHART, WOUND TREATMENT RENDERED, SKIN CARE PROVIDED, BELONGINGS RECONCILED AND COMPLETE, PATIENT ONLY HAS AN ENVELOPE AT BEDSIDE. STILL WAITING FOR PT INR RESULT. CALLED [facility], REPORT GIVEN TO JAS RUFFIN, NEEDS ATTENDED AND MET, CALL LIGHT WITHIN REACH, WILL CONTINUE TO MONITOR.
[2018-06-04 18:08] LABS: INR 4.5 (0.87-1.13)
--- NOTE | 2018-06-04 18:14 | NUR ---
RN NOTES RELAYED PT INR RESULT TO DR. OWEN, PER MD HOLD TODAY'S COUMADIN DOSE DUE TO ELEVATED INR LEVEL. PLACED A CALL TO JAS RUFFIN AT [facility], INFORMED OF ELEVATED LEVELS AND MEDICATION HOLD. PER RN, THEY WILL RE-CHECK LEVEL AT [facility].
--- NOTE | 2018-06-04 18:49 | NUR ---
AIR BAG BUILDER NOTE PATIENT A/OX4, HR SHOWS 100-110, NO DISTRESS NOTED, CALLED JAS RN AT [facility], PER RN, OK TO TAKE PATIENT. REPORT GIVEN TO EMT, CATHETER BAG EMPTIED, PATIENT TRANSFERRED TO [facility], LEFT THE FACILITY IN STABLE CONDITION.
== END 2018-06-04 18:47 | DRG 340 ==
LOC: ER 00:31 → MED 03:42 → TELE 04:47 → MED 06-04 08:59
PROVIDERS: ADMIT Internal Medicine
DX: S79.002A Unspecified physeal fracture of upper end of left femur, initial encounter for closed fracture (principal); L89.214 Pressure ulcer of right hip, stage 4; G82.20 Paraplegia, unspecified; I48.0 Paroxysmal atrial fibrillation; M86.60 Other chronic osteomyelitis, unspecified site; M84.452A Pathological fracture, left femur, initial encounter for fracture; K76.0 Fatty (change of) liver, not elsewhere classified; L89.314 Pressure ulcer of right buttock, stage 4; X58.XXXA Exposure to other specified factors, initial encounter; Y92.9 Unspecified place or not applicable; I10 Essential (primary) hypertension; E87.6 Hypokalemia; G89.4 Chronic pain syndrome; Z93.3 Colostomy status; Z79.84 Long term (current) use of oral hypoglycemic drugs; Z79.01 Long term (current) use of anticoagulants; Y93.89 Activity, other specified; Y92.129 Unspecified place in nursing home as the place of occurrence of the external cause; M85.80 Other specified disorders of bone density and structure, unspecified site; W34.00XS Accidental discharge from unspecified firearms or gun, sequela; Z89.411 Acquired absence of right great toe; L85.3 Xerosis cutis; Z86.718 Personal history of other venous thrombosis and embolism
CPT/HCPCS: 36415; 71045-TC; 73552; 80048-TC; 80053-TC; 82728-TC; 83540-TC; 83735-TC; 84100-TC; 84439-TC; 84443-TC; 85025-TC; 85610-TC; 85730-TC; 87081-TC; 93307-TC; A4606; J3480; J7030; J7040; J7042; Z7610